=== PATIENT | male | born 1980 | race Caucasian/White ===

== ENCOUNTER 2024-03-07 14:52 | Inpatient (IN) | payer SELFPAY ==
[2024-03-07 15:40] VITALS: BMI 22.8
[2024-03-07] MEDS ORDERED: NALOXONE HCL 0.4 MG/ML VIAL IM PRN (16:01)
[2024-03-07] MEDS ORDERED: NALOXONE (NARCAN) HCL 4 MG/0.1 ML SPRAY NS PRN (16:01)
[2024-03-07] MEDS ORDERED: ACETAMINOPHEN 325 MG TABLET (FP) PO PRN (16:01)
[2024-03-07] MEDS ORDERED: DICYCLOMINE HCL 10 MG CAPSULE PO PRN (16:01)
[2024-03-07] MEDS ORDERED: guaiFENesin 600 MG TABLET.ER (FP) PO PRN (16:01)
[2024-03-07] MEDS ORDERED: NICOTINE POLACRILEX 2 MG GUM BUC PRN (16:01)
[2024-03-07] MEDS ORDERED: BENZONATATE 200 MG CAPSULE PO PRN (16:01)
[2024-03-07] MEDS ORDERED: LOPERAMIDE HCL 2 MG CAPSULE PO PRN (16:01)
[2024-03-07] MEDS ORDERED: P-EPHED 60MG/TRIPROLIDI 2.5MG TABLET PO PRN (16:01)
[2024-03-07] MEDS ORDERED: NICOTINE POLACRILEX 2 MG LOZENGE BC PRN (16:01)
[2024-03-07] MEDS ORDERED: MAG HYDROX/AL HYDROX/SIMETH 30 ML UNIT-DOSE CUP PO PRN (16:01)
[2024-03-07] MEDS ORDERED: BENZOCAINE/MENTHOL (CHLORASEPTIC ) LOZENGE MM PRN (16:01)
[2024-03-07] MEDS ORDERED: MAGNESIUM HYDROX 2400MG/30ML ORAL SUSPENSION 30 ML CUP PO PRN (16:01)
[2024-03-07] MEDS ORDERED: BISMUTH SUBSALICYLATE 524 MG/30 ML PO PRN (16:01)
[2024-03-07] MEDS ORDERED: ONDANSETRON *ODT* 4 MG TABLET SL PRN (16:01)
[2024-03-07] MEDS ORDERED: POLYETHYLENE GLYCOL (HEALTHYLAX) 3350 17 GM PACKET PO PRN (16:01)
[2024-03-07] MEDS ORDERED: cloNIDine HCL 0.1 MG TABLET PO PRN (16:06)
[2024-03-07] MEDS ORDERED: methaDONE HCL 10 MG TABLET (FOR DETOX USE ONLY) PO ONE (18:00)
[2024-03-07] MEDS: IBUPROFEN 400 MG TABLET (FP) PO PRN (19:38)
[2024-03-07] MEDS: diazePAM 5 MG TABLET PO PRN (19:38)
[2024-03-07] MEDS: methaDONE HCL 10 MG TABLET (FOR DETOX USE ONLY) PO ONE (20:30)
[2024-03-08] MEDS: MELATONIN 5 MG TABLETS PO SCH (01:09)
[2024-03-08] MEDS: THIAMINE 100 MG TABLET PO SCH (01:10)
[2024-03-08] MEDS: diazePAM 5 MG TABLET PO SCH (01:18)
[2024-03-08] MEDS: IBUPROFEN 600 MG TABLET (FP) PO PRN (05:45)
[2024-03-08] MEDS: PRENATAL VITAMINS W/ FOLIC ACID TABLET (FP) PO SCH (10:03)
[2024-03-08 14:58] LABS: HEMATOCRIT 34.5 % (35.4-49); HEMOGLOBIN 11.4 GM/dL (11.7-16.9); MCH 32.5 pg (25.7-33.7); MCHC 33.2 g/dl (32.0-35.9); MEAN CELL VOLUME 97.9 fl (80-96); MEAN PLT VOLUME 7.1 fl (7.5-11.1); PLATELET COUNT 250 10^3/uL (134-434); RBC 3.52 M/mm3 (4.00-5.60); RDW 13.6 % (11.9-15.9); WHITE BLOOD COUNT 5.7 K/mm3 (4.0-10.0)
[2024-03-08 15:07] LABS: CHLORIDE 106 mmol/L (98-107); POTASSIUM 3.6 mmol/L (3.5-5.1); SODIUM 144 mmol/L (136-145)
[2024-03-08 15:12] LABS: ANION GAP 9 mmol/L (4-13); CALCIUM 8.9 mg/dL (8.5-10.1); CO2 30 mmol/L (21-32)
[2024-03-08 15:13] LABS: ALBUMIN 2.7 g/dl (3.4-5.0); BLOOD UREA NITROGEN 11.9 mg/dL (7-18); GLUCOSE,RANDOM 111 mg/dL (74-106)
[2024-03-08 15:15] LABS: SGOT/AST 19 U/L (15-37); SGPT/ALT 28 U/L (13-61)
[2024-03-08 15:17] LABS: BILIRUBIN,TOTAL 0.5 mg/dL (0.2-1); CREATININE 0.7 mg/dL (0.55-1.3); TOT PROT 6.4 g/dl (6.4-8.2)
[2024-03-08 15:19] LABS: ALK PHOS 83 U/L (45-117)
[2024-03-08] MEDS: METHOCARBAMOL 500 MG TABLET PO PRN (15:34)
[2024-03-09] MEDS: SUVOREXANT 10 MG TABLET PO PRN (02:09)
[2024-03-09] MEDS: diazePAM 5 MG TABLET PO SCH (05:45)
[2024-03-09] MEDS: methaDONE HCL 10 MG TABLET (FOR DETOX USE ONLY) PO ONE (10:13)
[2024-03-09] MEDS: cloNIDine HCL 0.1 MG TABLET PO SCH (13:06)
[2024-03-09] MEDS: methaDONE HCL 10 MG TABLET PO ONE (13:06)
[2024-03-09] MEDS ORDERED: methaDONE HCL 10 MG TABLET PO PRN (14:35)
[2024-03-10] MEDS: diazePAM 5 MG TABLET PO SCH (05:27)
[2024-03-10 09:12] VITALS: RESP 16
[2024-03-10] MEDS: methaDONE 40 MG, methaDONE 10 MG PO ONE (09:41)
[2024-03-10 13:04] VITALS: BP 109/69; PULSE 69; TEMP 98
[2024-03-11] MEDS ORDERED: cloNIDine HCL 0.1 MG TABLET PO PRN
[2024-03-11] MEDS ORDERED: diazePAM 5 MG TABLET PO ONE (06:00)
[2024-03-11] MEDS ORDERED: methaDONE HCL 10 MG TABLET (FOR DETOX USE ONLY) PO ONE (10:00)
[2024-03-11] MEDS ORDERED: methaDONE 40 MG, methaDONE 20 MG PO ONE (10:00)
[2024-03-12] MEDS ORDERED: methaDONE 40 MG, methaDONE 30 MG PO ONE (10:00)
[2024-03-13] MEDS ORDERED: methaDONE HCL 40 MG DISPERSABLE TABLET PO ONE (10:00)
[2024-03-14] MEDS ORDERED: methaDONE 80 MG, methaDONE 10 MG PO ONE (10:00)
== END 2024-03-10 15:38 | disposition home or self-care (01) | DRG 773 ==
LOC: YASAS 14:52 → Y6N 17:03
PROVIDERS: ADMIT Allergy & Immunology; ATTEND Surgery
PROC: HZ2ZZZZ Detoxification Services for Substance Abuse Treatment (ICD-10-PCS; principal; 2024-03-07)
DX: F11.23 Opioid dependence with withdrawal (principal); F10.230 Alcohol dependence with withdrawal, uncomplicated; F14.20 Cocaine dependence, uncomplicated; F15.20 Other stimulant dependence, uncomplicated; F17.210 Nicotine dependence, cigarettes, uncomplicated; F19.280 Other psychoactive substance dependence with psychoactive substance-induced anxiety disorder; F19.282 Other psychoactive substance dependence with psychoactive substance-induced sleep disorder; Z56.0 Unemployment, unspecified; Z59.02 Unsheltered homelessness
CPT/HCPCS: 36415; 80053; 80305; 80307; 85027; 86780; 93005; 93010

== ENCOUNTER 2024-04-09 09:09 | Inpatient (IN) | payer OTHER ==
[2024-04-09 09:42] VITALS: BMI 21.9
[2024-04-09] MEDS ORDERED: guaiFENesin 600 MG TABLET.ER (FP) PO PRN (10:09)
[2024-04-09] MEDS ORDERED: MAGNESIUM HYDROX 2400MG/30ML ORAL SUSPENSION 30 ML CUP PO PRN (10:09)
[2024-04-09] MEDS ORDERED: IBUPROFEN 400 MG TABLET (FP) PO PRN (10:09)
[2024-04-09] MEDS ORDERED: BENZOCAINE/MENTHOL (CHLORASEPTIC ) LOZENGE MM PRN (10:09)
[2024-04-09] MEDS ORDERED: NALOXONE (NARCAN) HCL 4 MG/0.1 ML SPRAY NS PRN (10:09)
[2024-04-09] MEDS ORDERED: POLYETHYLENE GLYCOL (HEALTHYLAX) 3350 17 GM PACKET PO PRN (10:09)
[2024-04-09] MEDS ORDERED: BENZONATATE 200 MG CAPSULE PO PRN (10:09)
[2024-04-09] MEDS ORDERED: chlordiazePOXIDE HCL 25 MG CAPSULE PO PRN (10:09)
[2024-04-09] MEDS ORDERED: ONDANSETRON *ODT* 4 MG TABLET ONE (10:24)
[2024-04-09] MEDS: ONDANSETRON *ODT* 4 MG TABLET SL PRN (10:25)
[2024-04-09] MEDS ORDERED: chlordiazePOXIDE HCL 25 MG CAPSULE ONE (10:34)
[2024-04-09] MEDS ORDERED: methaDONE HCL 10 MG TABLET (FOR DETOX USE ONLY) ONE (10:35)
[2024-04-09] MEDS: chlordiazePOXIDE HCL 25 MG CAPSULE PO SCH (10:40)
[2024-04-09] MEDS: methaDONE HCL 10 MG TABLET PO ONE (10:40)
[2024-04-09] MEDS: chlordiazePOXIDE HCL 25 MG CAPSULE PO ONE (10:41)
[2024-04-09] MEDS: cloNIDine HCL 0.1 MG TABLET PO SCH (14:03)
[2024-04-09] MEDS: FERROUS SO4 325 MG TABLET (FP) PO SCH (17:15)
[2024-04-09] MEDS: IBUPROFEN 600 MG TABLET (FP) PO PRN (17:16)
[2024-04-09] MEDS: NICOTINE POLACRILEX 4 MG GUM BUC PRN (17:18)
[2024-04-09] MEDS: MELATONIN 5 MG TABLETS PO SCH (22:20)
[2024-04-09] MEDS: THIAMINE 100 MG TABLET PO SCH (22:20)
[2024-04-09] MEDS: METHOCARBAMOL 500 MG TABLET PO PRN (22:23)
[2024-04-09] MEDS: methaDONE HCL 10 MG TABLET PO PRN (22:23)
[2024-04-10] MEDS: methaDONE 40 MG, methaDONE 10 MG PO ONE (10:08)
[2024-04-10] MEDS: PRENATAL VITAMINS W/ FOLIC ACID TABLET (FP) PO SCH (10:09)
[2024-04-10] MEDS: ACETAMINOPHEN 325 MG TABLET (FP) PO PRN (10:10)
[2024-04-11] MEDS: BISMUTH SUBSALICYLATE 524 MG/30 ML PO PRN (01:18)
[2024-04-11] MEDS: chlordiazePOXIDE HCL 25 MG CAPSULE PO SCH (06:09)
[2024-04-11] MEDS: methaDONE 40 MG, methaDONE 20 MG PO ONE (10:16)
[2024-04-11] MEDS: SUVOREXANT 10 MG TABLET PO PRN (22:20)
[2024-04-11] MEDS: cloNIDine HCL 0.1 MG TABLET PO PRN (22:21)
[2024-04-12] MEDS ORDERED: chlordiazePOXIDE HCL 10 MG CAPSULE PO PRN
[2024-04-12] MEDS: chlordiazePOXIDE HCL 10 MG CAPSULE PO SCH (05:35)
[2024-04-12] MEDS: methaDONE 40 MG, methaDONE 30 MG PO ONE (10:14)
[2024-04-12] MEDS: TRIMETHOBENZAMIDE HCL 200MG/2ML INJ IM ONE (16:16)
[2024-04-12] MEDS: LOPERAMIDE HCL 2 MG CAPSULE PO PRN (19:22)
[2024-04-12] MEDS: SUVOREXANT 10 MG TABLET PO PRN (22:06)
[2024-04-13] MEDS: chlordiazePOXIDE HCL 10 MG CAPSULE PO SCH (05:24)
[2024-04-13] MEDS: methaDONE HCL 40 MG DISPERSABLE TABLET PO ONE (10:33)
[2024-04-13] MEDS: hydrOXYzine PAMOATE 25 MG CAPSULE (FP) PO PRN (10:34)
[2024-04-13 15:21] LABS: BASO % 1.2 % (0-2.0); HEMOGLOBIN 11.2 GM/dL (11.7-16.9); LYMPH % 26.5 % (8-40); MCH 32.4 pg (25.7-33.7); MCHC 33.9 g/dl (32.0-35.9); MEAN CELL VOLUME 95.6 fl (80-96); MEAN PLT VOLUME 7.2 fl (7.5-11.1); MONO % 6.3 % (3.8-10.2); PLATELET COUNT 344 10^3/uL (134-434); RBC 3.45 M/mm3 (4.00-5.60); RDW 14.3 % (11.9-15.9); WHITE BLOOD COUNT 5.1 K/mm3 (4.0-10.0)
[2024-04-13 15:36] LABS: CALCIUM 8.4 mg/dL (8.5-10.1)
[2024-04-13 15:37] LABS: BLOOD UREA NITROGEN 7.7 mg/dL (7-18)
[2024-04-13 15:41] LABS: CREATININE 0.5 mg/dL (0.55-1.3)
[2024-04-13] MEDS: DICYCLOMINE HCL 10 MG CAPSULE PO PRN (17:00)
[2024-04-13] MEDS: MAG HYDROX/AL HYDROX/SIMETH 30 ML UNIT-DOSE CUP PO PRN (17:57)
[2024-04-13 20:30] VITALS: RESP 16
[2024-04-14] MEDS: chlordiazePOXIDE HCL 10 MG CAPSULE PO ONE (05:56)
[2024-04-14 09:30] VITALS: BP 104/62; PULSE 78; TEMP 97.5
[2024-04-14] MEDS: methaDONE 80 MG, methaDONE 10 MG PO ONE (09:32)
[2024-04-14] MEDS: NALOXONE (NYS OPIOID OVERDOSE PROGRAM) 4 MG/0.1 ML SPRAY NS PRN (10:33)
== END 2024-04-14 10:48 | disposition other institution (70) | DRG 773 ==
LOC: YASAS 09:09 → Y3N 11:20
PROVIDERS: ADMIT Neuromusculoskeletal Medicine & OMM; ATTEND Neuromusculoskeletal Medicine & OMM
PROC: HZ2ZZZZ Detoxification Services for Substance Abuse Treatment (ICD-10-PCS; principal; 2024-04-09)
DX: F11.23 Opioid dependence with withdrawal (principal); F10.230 Alcohol dependence with withdrawal, uncomplicated; F13.230 Sedative, hypnotic or anxiolytic dependence with withdrawal, uncomplicated; F15.20 Other stimulant dependence, uncomplicated; F17.210 Nicotine dependence, cigarettes, uncomplicated; F19.282 Other psychoactive substance dependence with psychoactive substance-induced sleep disorder; F19.24 Other psychoactive substance dependence with psychoactive substance-induced mood disorder; F42.9 Obsessive-compulsive disorder, unspecified; F32.A Depression, unspecified; Z86.19 Personal history of other infectious and parasitic diseases
CPT/HCPCS: 36415; 73110-TC-LT-FY; 80048; 80305; 85025; 86780; 93005; 93010; Q0162